=== PATIENT | female | born 1960 | race Caucasian/White ===

== ENCOUNTER 2017-03-13 11:06 | Inpatient (IN) | payer OTHER ==
[~2017-03-13] VITALS: Ht 160 cm; Wt 101.6 kg
[2017-03-13 13:40] VITALS: BP 103/44; PULSE 74; TEMP 97.8
[2017-03-13] MEDS ORDERED: CANA300T PO (14:12)
[2017-03-13] MEDS ORDERED: TRULICITY0.75 MG/0. SQ (14:13)
[2017-03-13] MEDS ORDERED: AMARYL4 MG PO (14:14)
[2017-03-13] MEDS ORDERED: LEVOXYL0.1 MG PO (14:15)
[2017-03-13] MEDS ORDERED: PERCOCET 325 MG1 TA3 PO (14:16)
[2017-03-13] MEDS ORDERED: PRAVACHOL 40MG40 MG PO (14:17)
[2017-03-13] MEDS ORDERED: XARELTO10 MG PO (14:18)
[2017-03-13] MEDS ORDERED: JANUMXR1000-50 PO (14:19)
[2017-03-13] MEDS ORDERED: SENOKOT S 50 MG1 TAB PO (14:19)
[2017-03-13] MEDS ORDERED: EFFEXOR 75M75 MG/TAB PO (14:21)
[2017-03-13] MEDS ORDERED: NOVOLOG 100U100 U/M1 SQ (14:41)
[2017-03-13 18:08] VITALS: BP 107/51; PULSE 87; TEMP 97.7
[2017-03-14 06:35] VITALS: BP 100/55; PULSE 82; TEMP 98.2
[2017-03-14 16:31] VITALS: BP 117/63; PULSE 78; TEMP 97.9
[2017-03-15 06:22] VITALS: BP 111/53; PULSE 68; TEMP 98.2
[2017-03-15 17:42] VITALS: BP 111/58; PULSE 79; TEMP 97.4
[2017-03-16 05:46] VITALS: BP 111/50; PULSE 65; TEMP 98.2
[2017-03-16 07:17] LABS: HEMATOCRIT 27.2 % (37.0-47.0); HEMOGLOBIN 8.2 g/dl (12.5-16.0)
[2017-03-16 07:36] LABS: CALCIUM 8.5 mg/dL (8.4-10.2); CREATININE, serum 0.55 mg/dL (0.52-1.25); MAGNESIUM 1.9 mg/dL (1.6-2.3); POTASSIUM 4.1 mmol/L (3.4-5.0)
[2017-03-16 16:08] VITALS: BP 110/67; PULSE 82; TEMP 96.6
[2017-03-17 06:07] VITALS: BP 108/56; PULSE 81; TEMP 97.6
[2017-03-17 15:43] VITALS: BP 118/65; PULSE 84; TEMP 97.8
[2017-03-18 06:48] VITALS: BP 108/48; PULSE 80; TEMP 98
[2017-03-18 18:07] VITALS: BP 127/64; PULSE 83; TEMP 96.3
[2017-03-19 05:15] VITALS: BP 134/74; PULSE 78; TEMP 97.6
[2017-03-19 16:02] VITALS: BP 114/60; PULSE 83; TEMP 98
[2017-03-20 04:59] VITALS: BP 114/53; PULSE 67; TEMP 98.3
[2017-03-20 17:54] VITALS: BP 124/65; PULSE 81; TEMP 96.4
[2017-03-21 05:11] VITALS: BP 108/59; PULSE 70; TEMP 98.3
[2017-03-21 16:14] VITALS: BP 116/54; PULSE 82; TEMP 98.4
[2017-03-22 04:47] VITALS: BP 94/55; PULSE 63; TEMP 98.5
[2017-03-22 17:39] VITALS: BP 132/70; PULSE 80; TEMP 98.8
[2017-03-23 04:34] VITALS: BP 118/42; PULSE 81; TEMP 98.2
[2017-03-23 08:13] VITALS: BP 137/70
[2017-03-23 08:13] LABS: HEMATOCRIT 33.2 % (37.0-47.0); HEMOGLOBIN 10.1 g/dl (12.5-16.0)
[2017-03-23 17:30] VITALS: BP 108/29; PULSE 81; TEMP 97.6
[2017-03-24 01:14] VITALS: BP 108/46; PULSE 73; TEMP 98.1
[2017-03-24 05:22] VITALS: BP 114/48; PULSE 78; TEMP 97.5
[2017-03-24 15:50] VITALS: BP 145/73; PULSE 78; TEMP 98.6
[2017-03-24 16:22] VITALS: BP 133/74; PULSE 74; TEMP 97.2
[2017-03-25 05:10] VITALS: BP 103/47; PULSE 75; TEMP 97.6
[2017-03-25 16:01] VITALS: BP 116/81; PULSE 80; TEMP 98.7
[2017-03-26 05:37] VITALS: BP 115/51; PULSE 80; TEMP 97.8
[2017-03-26 18:16] VITALS: BP 107/64; PULSE 82; TEMP 98.6
[2017-03-27 05:46] VITALS: BP 131/65; PULSE 81; TEMP 98.1
[2017-03-27 15:50] VITALS: BP 118/59; PULSE 76; TEMP 98.2
[2017-03-28 04:52] VITALS: BP 126/78; PULSE 89; TEMP 98.5
[2017-03-28] MEDS ORDERED: FERROUS SU325 MG/TAB PO (11:23)
[2017-03-28] MEDS ORDERED: TYLENOL 325MG325 MG PO (11:24)
[2017-03-28] MEDS ORDERED: ROXICODONE 55 MG/TAB PO (11:25)
== END 2017-03-28 13:50 | disposition home health service (06) | DRG 560 ==
PROVIDERS: Internal Medicine
DX: S32.402D Unspecified fracture of left acetabulum, subsequent encounter for fracture with routine healing (principal); Z68.41 Body mass index [BMI] 40.0-44.9, adult; D62 Acute posthemorrhagic anemia; S42.201D Unspecified fracture of upper end of right humerus, subsequent encounter for fracture with routine healing; S12.101D Unspecified nondisplaced fracture of second cervical vertebra, subsequent encounter for fracture with routine healing; V49.40XD Driver injured in collision with unspecified motor vehicles in traffic accident, subsequent encounter; E11.9 Type 2 diabetes mellitus without complications; S72.052D Unspecified fracture of head of left femur, subsequent encounter for closed fracture with routine healing; E66.9 Obesity, unspecified
CPT/HCPCS: 99222-AI; 99232-AI; 99239; J1815

== ENCOUNTER → 2017-09-07 | Outpatient (REF) ==
[~2017-09-07] MED LIST: AMARYL4 MG PO; CANA300T PO; EFFEXOR 75M75 MG/TAB PO; FERROUS SU325 MG/TAB PO; JANUMXR1000-50 PO; LEVOXYL0.1 MG PO; NOVOLOG 100U100 U/M1 SQ; PERCOCET 325 MG1 TA3 PO; PRAVACHOL 40MG40 MG PO; ROXICODONE 55 MG/TAB PO; SENOKOT S 50 MG1 TAB PO; TRULICITY0.75 MG/0. SQ; TYLENOL 325MG325 MG PO; XARELTO10 MG PO
== END ==
LOC: ZLAB.WCH 09:02
DX: Z01.89 Encounter for other specified special examinations (principal)

== ENCOUNTER → 2017-09-19 | Outpatient (CLI) | payer OTHER ==
[2017-09-19 16:31] LABS: HEMATOCRIT 45.6 % (37.0-47.0); HEMOGLOBIN 14.8 g/dl (12.5-16.0); MEAN CELL VOLUME 87 fl (80.0-100.0); MEAN CORPUSCULAR HEMOGLOBIN 28 pg (27.0-31.0); MEAN CORPUSCULAR HGB CONC 33 g/dl (33.0-37.0); MEAN PLATELET VOLUME 9.5 fl (7.4-10.4); PLATELET COUNT 407 K/mm3 (130-400); RED BLOOD COUNT 5.24 M/mm3 (4.10-5.30); WHITE BLOOD COUNT 8.3 K/mm3 (4.8-10.8)
[2017-09-19 16:56] LABS: ERYTHROCYTE SEDIMENTATION RATE 25 mm/hr (0-30)
== END ==
LOC: COL.LAB 15:57
PROVIDERS: Orthopaedic Surgery
DX: M25.552 Pain in left hip (principal)

== ENCOUNTER → 2017-09-25 | Outpatient (CLI) | payer OTHER ==
[~2017-09-25] VITALS: Ht 160 cm; Wt 100.0 kg
[2017-09-25 10:41] LABS: SYNOVIAL FLUID RBC 25000 /mm3 (0-0); SYNOVIAL FLUID WBC 39 /mm3 (200-600)
[2017-09-25 10:44] LABS: SYNOVIAL FLUID APPEARANCE CLOUDY; SYNOVIAL FLUID COLOR RED
== END ==
LOC: COL.RAD 08:44
PROVIDERS: Orthopaedic Surgery
DX: M25.552 Pain in left hip (principal); R79.82 Elevated C-reactive protein (CRP)

== ENCOUNTER 2017-10-02 13:20 | Inpatient (IN) | payer BC ==
[~2017-10-02] VITALS: Ht 160 cm; Wt 95.3 kg
[2017-10-19] MEDS ORDERED: PERCOCET 325 MG1 TA2 PO (15:31)
[2017-10-19] MEDS ORDERED: SMZ/TMPDS PO (15:34)
[2017-10-19] MEDS ORDERED: MOBIC15 MG PO (15:35)
[2017-10-19] MEDS ORDERED: XANAX 0.5MG0.5 MG PO (15:35)
[2017-10-19] MEDS ORDERED: ASPIRIN E.C. 8181 MG PO (15:36)
[2017-10-22] VITALS (9 sets, daily range): BP systolic 96–139; BP diastolic 55–90; PULSE 68–101; TEMP 98.7–99
[2017-10-22 20:00] LABS: HEMATOCRIT 39.6 % (37.0-47.0); HEMOGLOBIN 12.9 g/dl (12.5-16.0)
[2017-10-23] VITALS (7 sets, daily range): BP systolic 100–146; BP diastolic 56–72; PULSE 87–109; TEMP 98.1–99.3
[2017-10-23 06:53] LABS: HEMATOCRIT 38.2 % (37.0-47.0); HEMOGLOBIN 12.5 g/dl (12.5-16.0)
[2017-10-24 03:31] VITALS: BP 112/63; PULSE 100; TEMP 99
[2017-10-24 07:11] LABS: HEMATOCRIT 34.3 % (37.0-47.0); HEMOGLOBIN 11.3 g/dl (12.5-16.0)
[2017-10-24 07:50] VITALS: BP 112/59; PULSE 111; TEMP 99.2
[2017-10-24 11:52] VITALS: BP 98/59; PULSE 101; TEMP 98.4
[2017-10-24] MEDS ORDERED: NORCO 325 MG-7.1 TAB PO (15:57)
[2017-10-24] MEDS ORDERED: ROXICODONE 55 MG/TAB PO (15:58)
[2017-10-24] MEDS ORDERED: ASPI325T6 PO (16:01)
== END 2017-10-24 17:33 | disposition home or self-care (01) | DRG 470 ==
LOC: INPTSU 10-22 09:47 → JCC 10-22 10:04
PROVIDERS: Nurse Practitioner; Orthopaedic Surgery
PROC: 0SRB0JZ Replacement of Left Hip Joint with Synthetic Substitute, Open Approach (ICD-10-PCS; principal; 2017-10-22 16:00)
DX: M16.52 Unilateral post-traumatic osteoarthritis, left hip (principal); M87.252 Osteonecrosis due to previous trauma, left femur; I10 Essential (primary) hypertension; E11.65 Type 2 diabetes mellitus with hyperglycemia
CPT/HCPCS: 99222; 99231-AI; A4314; A9284; C1776; J0171; J0690; J1815; J2250; J2270; J2370; J2405; J2704; J3010; J7030; P9016

== ENCOUNTER → 2017-10-20 | Outpatient (CLI) | payer BC ==
[~2017-10-20] MED LIST changes: +ASPIRIN E.C. 8181 MG PO; +MOBIC15 MG PO; +PERCOCET 325 MG1 TA2 PO; +SMZ/TMPDS PO; +XANAX 0.5MG0.5 MG PO
[2017-10-20 14:11] LABS: HIV 1/2 Antibodies Non-Reactive; HIV-1p24 Antigen Non-Reactive
[2017-10-21 15:19] LABS: HEPATITIS B SURFACE ANTIBODY <2.0 (())
== END ==
LOC: COL.LAB 12:18
PROVIDERS: Orthopaedic Surgery
DX: Z01.812 Encounter for preprocedural laboratory examination (principal); M16.12 Unilateral primary osteoarthritis, left hip

== ENCOUNTER 2017-10-27 14:44 | Inpatient (IN) | payer BC ==
[2017-10-27] VITALS (326 sets, daily range): BP systolic 114–140; BP diastolic 51–64; PULSE 75–102; TEMP 97.6–98.1; O2SAT 79–100
[~2017-10-27] VITALS: Ht 160 cm; Wt 96.1 kg
[~2017-10-27 14:44] MED LIST changes: +ASPI325T6 PO; +NORCO 325 MG-7.1 TAB PO
[2017-10-27 15:27] LABS: ARTERIAL BLD GAS O2 SATURATION 97.7 % (92-100); ARTERIAL BLD GAS TCO2 CT 4.2; ARTERIAL BLOOD GAS BASE EXCESS -22.9 (-2-2); ARTERIAL BLOOD GAS HCO3 3.8 meq/L (22-26)
[2017-10-27 15:29] LABS: ARTERIAL BLOOD GAS PCO2 11.5 mmHg (35-45); ARTERIAL BLOOD GAS PO2 132.8 mmHg (80-100); ARTERIAL BLOOD GAS pH 7.14 (7.35-7.45)
[2017-10-27 16:17] LABS: BASO # 0.1 (0.0-0.2); BASO % 0.4 % (0.0-2.0); EOS % 0.1 % (0-4.0); GRAN # 14.9 (1.4-6.5); GRAN % 78.9 % (42.2-75.2); HEMATOCRIT 37.7 % (37.0-47.0); LYMPH % 10.8 % (20.0-51.0); MEAN CELL VOLUME 90 fl (80.0-100.0); MEAN CORPUSCULAR HEMOGLOBIN 29 pg (27.0-31.0); MEAN CORPUSCULAR HGB CONC 32 g/dl (33.0-37.0); MEAN PLATELET VOLUME 9.3 fl (7.4-10.4); MONO # 1.1 (0.1-0.6); MONO % 5.7 % (1.7-9.3); PLATELET COUNT 592 K/mm3 (130-400); RED BLOOD COUNT 4.17 M/mm3 (4.10-5.30)
[2017-10-27 16:21] LABS: HEMOGLOBIN 11.9 g/dl (12.5-16.0)
[2017-10-27 16:28] LABS: ALBUMIN 3.7 gm/dL (3.5-5.0); BILIRUBIN,TOTAL 0.3 mg/dL (0.0-1.0); CALCIUM 9.5 mg/dL (8.4-10.2); CREATININE, serum 0.65 mg/dL (0.52-1.25); MAGNESIUM 2.1 mg/dL (1.6-2.3); POTASSIUM 3.8 mmol/L (3.4-5.0); TOTAL PROTEIN 7.2 gm/dL (6.4-8.2)
[2017-10-27 17:07] LABS: TRICYCLIC ANTIDEPRESS URINE NEGATIVE
[2017-10-27 19:59] LABS: CALCIUM 9.5 mg/dL (8.4-10.2); CREATININE, serum 0.69 mg/dL (0.52-1.25)
[2017-10-27 23:15] LABS: CALCIUM 9.2 mg/dL (8.4-10.2); CREATININE, serum 0.66 mg/dL (0.52-1.25); POTASSIUM 3.4 mmol/L (3.4-5.0)
[2017-10-28] VITALS (1390 sets, daily range): BP systolic 127–136; BP diastolic 58–64; PULSE 87–94; TEMP 97.8–99.9; O2SAT 78–100
[2017-10-28 04:21] LABS: CALCIUM 8.8 mg/dL (8.4-10.2); CREATININE, serum 0.6 mg/dL (0.52-1.25); POTASSIUM 3.1 mmol/L (3.4-5.0)
[2017-10-28 05:39] LABS: MEAN CELL VOLUME 88 fl (80.0-100.0); MEAN CORPUSCULAR HGB CONC 32 g/dl (33.0-37.0); MEAN PLATELET VOLUME 9.2 fl (7.4-10.4); PLATELET COUNT 507 K/mm3 (130-400); RED BLOOD COUNT 3.62 M/mm3 (4.10-5.30)
[2017-10-28 05:40] LABS: HEMATOCRIT 31.9 % (37.0-47.0); HEMOGLOBIN 10.2 g/dl (12.5-16.0); MEAN CORPUSCULAR HEMOGLOBIN 28 pg (27.0-31.0)
[2017-10-28 05:51] LABS: ALBUMIN 3.1 gm/dL (3.5-5.0); BILIRUBIN,TOTAL 0.3 mg/dL (0.0-1.0); CALCIUM 8.9 mg/dL (8.4-10.2); CREATININE, serum 0.56 mg/dL (0.52-1.25); POTASSIUM 3.1 mmol/L (3.4-5.0); TOTAL PROTEIN 6.3 gm/dL (6.4-8.2)
[2017-10-28 07:35] LABS: CALCIUM 8.7 mg/dL (8.4-10.2); CREATININE, serum 0.56 mg/dL (0.52-1.25); POTASSIUM 3.2 mmol/L (3.4-5.0)
[2017-10-28 08:31] LABS: COLLECTION METHOD CLEAN CATCH
[2017-10-28 08:41] LABS: MUCOUS Present /lpf; PH 5 (5-8); URINE APPEARANCE Clear; URINE BACTERIA None Seen /hpf; URINE BILIRUBIN Negative (NEGATIVE); URINE BLOOD 1+ (NEGATIVE); URINE COLOR Straw; URINE GLUCOSE 3+ (NEGATIVE); URINE KETONE 2+ (NEGATIVE); URINE LEUKOCYTE ESTERASE Negative (NEGATIVE); URINE NITRATE Negative (NEGATIVE); URINE PROTEIN(semi-quant) 1+ (NEGATIVE); URINE RBC 0-2 /hpf; URINE UROBILINOGEN Negative (NEGATIVE)
[2017-10-28 08:58] LABS: MAGNESIUM 2.1 mg/dL (1.6-2.3); PHOSPHOROUS 1.9 mg/dL (2.5-4.5)
[2017-10-28 10:08] LABS: BAND 35 % (0-10); LYMPHOCYTE 12 % (20.0-51.0); NEUTROPHILS 53 % (42.0-75.2); PLATELET ESTIMATE INCREASED (NORMAL)
[2017-10-28 11:24] LABS: CALCIUM 8.9 mg/dL (8.4-10.2); CREATININE, serum 0.58 mg/dL (0.52-1.25); POTASSIUM 3.2 mmol/L (3.4-5.0)
[2017-10-28 11:32] LABS: MUCOUS Present /lpf; PH 5 (5-8); SQUAMOUS EPITHELIAL 0-2 /hpf; URINE APPEARANCE Clear; URINE BACTERIA None Seen /hpf; URINE BILIRUBIN Negative (NEGATIVE); URINE BLOOD 1+ (NEGATIVE); URINE COLOR Straw; URINE GLUCOSE 3+ (NEGATIVE); URINE KETONE 2+ (NEGATIVE); URINE LEUKOCYTE ESTERASE Negative (NEGATIVE); URINE NITRATE Negative (NEGATIVE); URINE PROTEIN(semi-quant) 1+ (NEGATIVE); URINE RBC 0-2 /hpf; URINE UROBILINOGEN Negative (NEGATIVE); URINE WBC 0-2 /hpf
[2017-10-28 14:29] LABS: COLLECTION METHOD CLEAN CATCH
[2017-10-28 15:58] LABS: CALCIUM 8.8 mg/dL (8.4-10.2); CREATININE, serum 0.53 mg/dL (0.52-1.25); POTASSIUM 3.1 mmol/L (3.4-5.0)
[2017-10-28 19:52] LABS: CALCIUM 8.8 mg/dL (8.4-10.2); CREATININE, serum 0.54 mg/dL (0.52-1.25); POTASSIUM 3.1 mmol/L (3.4-5.0)
[2017-10-28 23:27] LABS: CREATININE, serum 0.55 mg/dL (0.52-1.25)
[2017-10-28 23:37] LABS: POTASSIUM 2.9 mmol/L (3.4-5.0)
[2017-10-29] VITALS (1357 sets, daily range): BP systolic 115–144; BP diastolic 59–73; PULSE 90–95; TEMP 97.8–98.9; O2SAT 63–100
[2017-10-29 03:35] LABS: CALCIUM 8.7 mg/dL (8.4-10.2); CREATININE, serum 0.49 mg/dL (0.52-1.25); POTASSIUM 3.2 mmol/L (3.4-5.0)
[2017-10-29 05:50] LABS: MEAN CELL VOLUME 86 fl (80.0-100.0); MEAN CORPUSCULAR HGB CONC 33 g/dl (33.0-37.0); PLATELET COUNT 435 K/mm3 (130-400); RED BLOOD COUNT 3.44 M/mm3 (4.10-5.30); REDCELL DISTRIBUTION WIDTH-CV 14.2 % (11.5-14.5)
[2017-10-29 05:51] LABS: HEMATOCRIT 29.4 % (37.0-47.0); HEMOGLOBIN 9.8 g/dl (12.5-16.0); MEAN CORPUSCULAR HEMOGLOBIN 28 pg (27.0-31.0)
[2017-10-29 06:04] LABS: ALBUMIN 2.8 gm/dL (3.5-5.0); BILIRUBIN,TOTAL 0.2 mg/dL (0.0-1.0); CALCIUM 8.8 mg/dL (8.4-10.2); CREATININE, serum 0.49 mg/dL (0.52-1.25); POTASSIUM 3.3 mmol/L (3.4-5.0); TOTAL PROTEIN 5.4 gm/dL (6.4-8.2)
[2017-10-29 06:15] LABS: BAND 3 % (0-10); BASOPHIL 1 % (0-2); EOSINOPHIL 3 % (0-4); LYMPHOCYTE 15 % (20.0-51.0); METAMYELOCYTE 2 % (0-0); NEUTROPHILS 74 % (42.0-75.2); PLATELET ESTIMATE INCREASED (NORMAL)
[2017-10-29 06:17] LABS: TOXIC GRANULATION PRESENT
[2017-10-29 11:21] LABS: CALCIUM 8.8 mg/dL (8.4-10.2); CREATININE, serum 0.47 mg/dL (0.52-1.25)
[2017-10-29 13:42] LABS: COLLECTION METHOD CLEAN CATCH
[2017-10-29 13:49] LABS: MUCOUS Present /lpf; PH 5 (5-8); SQUAMOUS EPITHELIAL 0-2 /hpf; URINE APPEARANCE Clear; URINE BACTERIA None Seen /hpf; URINE BILIRUBIN Negative (NEGATIVE); URINE BLOOD Negative (NEGATIVE); URINE COLOR Straw; URINE GLUCOSE 3+ (NEGATIVE); URINE KETONE 2+ (NEGATIVE); URINE LEUKOCYTE ESTERASE Negative (NEGATIVE); URINE NITRATE Negative (NEGATIVE); URINE PROTEIN(semi-quant) Negative (NEGATIVE); URINE UROBILINOGEN Negative (NEGATIVE)
[2017-10-29 15:47] LABS: CALCIUM 8.6 mg/dL (8.4-10.2); CREATININE, serum 0.44 mg/dL (0.52-1.25); POTASSIUM 3.1 mmol/L (3.4-5.0)
[2017-10-29 19:16] LABS: C-REACTIVE PROTEIN 6.7 mg/dL (0.0-0.9); CALCIUM 8.5 mg/dL (8.4-10.2); CREATININE, serum 0.4 mg/dL (0.52-1.25)
[2017-10-29 19:28] LABS: POTASSIUM 2.8 mmol/L (3.4-5.0)
[2017-10-29 23:15] LABS: CALCIUM 8.4 mg/dL (8.4-10.2); CREATININE, serum 0.41 mg/dL (0.52-1.25); PHOSPHOROUS 1.3 mg/dL (2.5-4.5); POTASSIUM 3.3 mmol/L (3.4-5.0)
[2017-10-30] VITALS (694 sets, daily range): BP systolic 102–145; BP diastolic 55–70; PULSE 95–110; TEMP 97.2–98.6; O2SAT 90–100
[2017-10-30 03:32] LABS: BASO % 0.4 % (0.0-2.0); EOS # 0.2 (0.0-0.7); EOS % 2.3 % (0-4.0); GRAN # 5.6 (1.4-6.5); LYMPH # 1.8 (1.2-3.4); LYMPH % 21.3 % (20.0-51.0); MEAN CELL VOLUME 83 fl (80.0-100.0); MEAN CORPUSCULAR HGB CONC 34 g/dl (33.0-37.0); MEAN PLATELET VOLUME 8.8 fl (7.4-10.4); MONO # 0.7 (0.1-0.6); MONO % 8.6 % (1.7-9.3); PLATELET COUNT 387 K/mm3 (130-400); RED BLOOD COUNT 3.46 M/mm3 (4.10-5.30)
[2017-10-30 03:33] LABS: HEMATOCRIT 28.7 % (37.0-47.0); HEMOGLOBIN 9.8 g/dl (12.5-16.0); MEAN CORPUSCULAR HEMOGLOBIN 28 pg (27.0-31.0)
[2017-10-30 03:42] LABS: CALCIUM 8.4 mg/dL (8.4-10.2); CREATININE, serum 0.39 mg/dL (0.52-1.25); POTASSIUM 3.8 mmol/L (3.4-5.0)
[2017-10-30 05:25] LABS: ARTERIAL BLD GAS O2 SATURATION 96.2 % (92-100); ARTERIAL BLD GAS TCO2 CT 25.2; ARTERIAL BLOOD GAS HCO3 24.2 meq/L (22-26); ARTERIAL BLOOD GAS PCO2 33.5 mmHg (35-45); ARTERIAL BLOOD GAS PO2 78.9 mmHg (80-100); ARTERIAL BLOOD GAS pH 7.48 (7.35-7.45)
[2017-10-30 07:26] LABS: ANION GAP 9 mmol/L (7-16); BLOOD UREA NITROGEN 2 mg/dL (7-17); CALCIUM 8.4 mg/dL (8.4-10.2); CARBON DIOXIDE 25 mmol/L (22-30); CHLORIDE 103 mmol/L (98-107); CREATININE, serum 0.37 mg/dL (0.52-1.25); GLUCOSE 159 mg/dL (74-106); MAGNESIUM 1.7 mg/dL (1.6-2.3); POTASSIUM 3.4 mmol/L (3.4-5.0); SODIUM 137 mmol/L (137-145)
[2017-10-30 07:47] LABS: ACETONE,SERUM SMALL
[2017-10-31 02:54] VITALS: BP 140/81; PULSE 94; TEMP 98.5
[2017-10-31 06:46] LABS: MEAN CELL VOLUME 85 fl (80.0-100.0); MEAN CORPUSCULAR HGB CONC 33 g/dl (33.0-37.0); MEAN PLATELET VOLUME 10.3 fl (7.4-10.4); PLATELET COUNT 474 K/mm3 (130-400); REDCELL DISTRIBUTION WIDTH-CV 14.3 % (11.5-14.5)
[2017-10-31 06:54] LABS: CALCIUM 8.7 mg/dL (8.4-10.2); CREATININE, serum 0.36 mg/dL (0.52-1.25); MAGNESIUM 1.8 mg/dL (1.6-2.3); PHOSPHOROUS 2.2 mg/dL (2.5-4.5); POTASSIUM 3.4 mmol/L (3.4-5.0)
[2017-10-31 06:56] LABS: HEMATOCRIT 30.7 % (37.0-47.0); HEMOGLOBIN 10.1 g/dl (12.5-16.0); MEAN CORPUSCULAR HEMOGLOBIN 28 pg (27.0-31.0)
[2017-10-31 07:47] LABS: BAND 27 % (0-10); EOSINOPHIL 2 % (0-4); LYMPHOCYTE 19 % (20.0-51.0); NEUTROPHILS 47 % (42.0-75.2)
[2017-10-31 07:48] LABS: PLATELET ESTIMATE INCREASED (NORMAL)
[2017-10-31 08:57] VITALS: BP 108/40; PULSE 93; TEMP 98.7
[2017-10-31 12:30] VITALS: BP 124/72; PULSE 86; TEMP 98.3
[2017-10-31 16:41] VITALS: BP 119/59; PULSE 94; TEMP 98.9
[2017-10-31 20:55] VITALS: BP 140/63; PULSE 96; TEMP 98.9
[2017-11-01 00:37] VITALS: BP 120/73; PULSE 102; TEMP 97.7
[2017-11-01 03:22] VITALS: BP 106/50; PULSE 96; TEMP 98.5
[2017-11-01 06:33] LABS: MEAN CELL VOLUME 87 fl (80.0-100.0); MEAN CORPUSCULAR HGB CONC 33 g/dl (33.0-37.0); MEAN PLATELET VOLUME 10.4 fl (7.4-10.4); PLATELET COUNT 457 K/mm3 (130-400); RED BLOOD COUNT 3.52 M/mm3 (4.10-5.30); REDCELL DISTRIBUTION WIDTH-CV 14.4 % (11.5-14.5)
[2017-11-01 06:48] LABS: C-REACTIVE PROTEIN 6.6 mg/dL (0.0-0.9); PHOSPHOROUS 3.3 mg/dL (2.5-4.5); POTASSIUM 3.8 mmol/L (3.4-5.0)
[2017-11-01 06:50] LABS: HEMATOCRIT 30.6 % (37.0-47.0); MEAN CORPUSCULAR HEMOGLOBIN 28 pg (27.0-31.0)
[2017-11-01 08:31] LABS: BAND 34 % (0-10); LYMPHOCYTE 25 % (20.0-51.0); NEUTROPHILS 39 % (42.0-75.2)
[2017-11-01 08:32] LABS: HYPOCHROMIA 1+; PLATELET ESTIMATE INCREASED (NORMAL)
[2017-11-01 08:33] LABS: ERYTHROCYTE SEDIMENTATION RATE 46 mm/hr (0-30)
[2017-11-01 09:41] VITALS: BP 109/62; PULSE 105; TEMP 97.5
[2017-11-01 12:19] VITALS: BP 121/66; PULSE 98; TEMP 98.6
== END 2017-11-01 14:03 | disposition home or self-care (01) | DRG 638 ==
LOC: MEDICAL 14:44 → ICU 14:44 → SURG 14:44 → ICU 14:45 → MEDICAL 10-30 13:31
PROVIDERS: Family Medicine; Internal Medicine Pulmonary Disease; Physician Assistant
PROC: 02HV33Z Insertion of Infusion Device into Superior Vena Cava, Percutaneous Approach (ICD-10-PCS; principal; 2017-10-29)
DX: E11.10 Type 2 diabetes mellitus with ketoacidosis without coma (principal); E87.4 Mixed disorder of acid-base balance; I10 Essential (primary) hypertension; Z96.642 Presence of left artificial hip joint; F41.8 Other specified anxiety disorders; E87.6 Hypokalemia; E83.39 Other disorders of phosphorus metabolism
CPT/HCPCS: 99223; 99223-AI; 99232-AI; 99233-AI; 99239; C1751; J1644; J1650; J1815; J2185; J3370; J3480; J7040; J7042; J7050; J7060

== ENCOUNTER → 2017-11-05 | Outpatient (REF) | LOC: ZLAB.WCH 18:36 | DX: Z01.89 Encounter for other specified special examinations (principal) ==